=== PATIENT | female | born 1940 | race Caucasian/White ===

== ENCOUNTER → 2017-03-13 19:38 | Outpatient (CLI) | payer MEDICARE, OTHER | END | disposition home or self-care (01) | LOC: D.MAMMO 09:00 | DX: Z12.31 Encounter for screening mammogram for malignant neoplasm of breast (principal) ==

== ENCOUNTER 2017-04-21 12:02 | Outpatient (CLI) | payer MEDICARE, OTHER | END 2017-04-21 13:53 | LOC: D.MAMMO 12:02 | DX: N64.89 Other specified disorders of breast (principal) ==

== ENCOUNTER → 2017-05-12 10:28 | Outpatient (CLI) | payer MEDICARE, OTHER | END | disposition home or self-care (01) | LOC: D.US 05-09 11:00 | DX: I83.812 Varicose veins of left lower extremity with pain (principal) ==

== ENCOUNTER → 2019-11-18 17:50 | Outpatient (CLI) | payer MEDICARE, OTHER ==
[2019-11-18 17:56] LABS: EOSINOPHILS 5.5 % (0-7); HEMATOCRIT 31.5 % (36.0-48.0); HEMOGLOBIN 9.6 g/dL (12-16); IMMATURE GRANULOCYTES 0.2 % (0-5); LYMPHOCYTES 32.2 % (15-50); MCH 23.9 pg (26.0-34.0); MCHC 30.5 g/dL (31.0-37.0); MCV 78.4 fL (80.0-100.0); MONOCYTES 10.3 % (2-11); NEUTROPHILS 50.8 % (40-80); PLATELET COUNT 217 10x3/uL (130-400); RBC 4.02 10x6/uL (4.00-5.40); WBC 4.2 10x3/uL (4.8-10.8)
[2019-11-18 18:08] LABS: % SATURATION 13 % (15-55); IRON 49 ug/dl (35-150); TOTAL IRON BIND CAPACITY 355 ug/dl (260-445); UNSAT IRON BIND CAPACITY 306 ug/dl (150-375)
== END | disposition home or self-care (01) ==
LOC: D.LABREF 17:50
PROVIDERS: ATTEND Internal Medicine Gastroenterology
DX: D50.9 Iron deficiency anemia, unspecified (principal); R19.5 Other fecal abnormalities